=== PATIENT | female | born 1955 | race Caucasian/White ===

== ENCOUNTER 2016-06-12 17:18 | Emergency (ER) | payer BC, OTHER ==
[~2016-06-12] VITALS: Wt 61.4 kg
[~2016-06-12 17:18] MED LIST: IBUP-727 PO; METF500T3 PO; METF500T4 PO; ONDA4TAB8 PO
--- NOTE | 2016-06-12 18:27 | ERD ---
ER Documentation Chief Complaint Date/Time DATE: 06/12/16 TIME: 18:25 Chief Complaint R BO CELLULITIS FROM A WOUND . NO FEVERS. ONSET 1 WEEK AGO HPI This is a 61-year-old female who presents to the emergency room for evaluation of right bo pain and redness. The patient states she fell approximately 5 days ago and states that she noticed some redness in her right bo. The patient states that she went to her primary care physician who sent her to the emergency room for evaluation. The patient also tried putting penicillin cream on her bo without relief. ROS All systems reviewed and are negative except as per history of present illness. Medications Home Meds Active Scripts Metformin* (Glucophage*) 500 Mg Tab, 500 MG PO BID, #60 TAB Prov:HELENA GARCIA MD 08/30/15 Ondansetron Hcl* (Zofran*) 4 Mg Tablet, 4 MG PO Q8H Y for NAUSEA AND/OR VOMITING , #10 TAB Prov:ALONDRA BUCK DO 04/26/15 Reported Medications Metformin* (Glucophage* XR) 500 Mg Tab.sr.24h, 1000 MG PO DAILY, #30 TAB 04/26/15 Ibuprofen (Motrin) 600 Mg Tablet, 600 MG PO Q8 Y for PAIN 12/05/11 Allergies Allergies: Coded Allergies: No Known Allergy (Unverified , 06/07/15) PMhx/Soc History of Surgery: No (partial hysterectomy, bilateral eye surgery for cataracts) Anesthesia Reaction: No Hx Neurological Disorder: No Hx Respiratory Disorders: No Hx Cardiac Disorders: No Hx Psychiatric Problems: No Hx Miscellaneous Medical Probl: Yes (DM) Hx Alcohol Use: Yes (drinks occassionally) Hx Substance Use: No Hx Tobacco Use: No Physical Exam Vitals Vital Signs Date Time Temp Pulse Resp B/P Pulse Ox O2 Delivery O2 Flow Rate FiO2 06/12/16 17:21 98.6 80 21 146/65 99 Physical Exam Const: No acute distress Head: [Atraumatic] Eyes: [Normal Conjunctiva] ENT: [Normal External Ears, Nose and Mouth.] Neck: [Full range of motion. No meningismus.] Resp: [Clear to auscultation bilaterally] Cardio: [Regular rate and rhythm, no murmurs] Abd: [Soft, non tender, non distended. Normal bowel sounds] Skin: 1 cm x 1 cm abrasion with scaling over the right anterior bo with surrounding area of erythema, blanching to the touch, warm to touch, negative Mikulski [No petechiae or rashes] Back: [No midline or flank tenderness] Ext: [No cyanosis, or edema] Neur: [Awake and alert] Psych: [Normal Mood and Affect] Results 24 hrs Current Medications Medications (Trade) Dose Ordered Sig/Sheba Route PRN Reason Start Time Stop Time Status Last Admin Dose Admin Diphtheria/ Tetanus/Acell Pertussis (Adacel) 0.5 ml ONCE ONCE IM* 06/12/16 18:30 2 18:31 Ceftriaxone Sodium (Rocephin) 500 mg ONCE ONCE IM 06/12/16 18:30 2 18:31 Trimethoprim/ Sulfamethoxazole (Bactrim (Ds)) 1 tab ONCE ONCE PO 06/12/16 18:30 2 18:31 Cephalexin (Keflex) 500 mg ONCE ONCE PO 06/12/16 18:30 06/12/16 18:31 Procedures/MDM This 61-year-old female presents to the emergency room for evaluation of right lower extremity cellulitis. This patient does have cellulitis on my examination. The patient was given 500 mg intramuscular Rocephin, 1 tab of Bactrim, 1 tablet Keflex here in the emergency room. She also had tetanus updated. The patient is afebrile, not tachycardic, no signs of systemic infection at this time. She will be discharged home at this time with a prescription for Bactrim and Keflex to take over the course of the next 2 weeks. I advised her to reevaluate her wound 5 days after she starts her antibiotics and if her erythema spreading she is to return immediately to the emergency room for further evaluation. She verbalized understanding. Departure Diagnosis: Primary Impression: Cellulitis of right lower leg Condition: Stable ALONDRA BUCK DO Jun 12, 2016 18:27
[2016-06-12] MEDS ORDERED: TRIMETHOPRIM/SULFAMETHOX (DS) TAB PO ONE (18:30)
[2016-06-12] MEDS ORDERED: DIPHTH/TET/ACEL PERTUSS (ADULT) 0.5 ML VIAL IM* ONE (18:30)
[2016-06-12] MEDS ORDERED: CEFTRIAXONE 500 MG INJ IM ONE (18:30)
[2016-06-12] MEDS ORDERED: CEPHALEXIN 500 MG CAP PO ONE (18:30)
[2016-06-12] MEDS ORDERED: CEPH-443 PO (18:33)
[2016-06-12] MEDS ORDERED: BACTDS PO (18:33)
[2016-06-12] MEDS ORDERED: BACITRACIN 0.9 GM OINT TOP ONE (19:00)
[2016-06-12 19:02] VITALS: BP 136/79; PULSE 79; RESP 18; TEMP 98
== END 2016-06-12 19:10 | disposition home or self-care (01) ==
LOC: FTE 17:18
DX: L03.115 Cellulitis of right lower limb (principal); E11.9 Type 2 diabetes mellitus without complications; Z79.84 Long term (current) use of oral hypoglycemic drugs; Z23 Encounter for immunization
CPT/HCPCS: 90471; 90715; 96372; 99284; J0696; Z7610

== ENCOUNTER 2016-08-07 09:01 | Emergency (ER) | payer BC ==
[~2016-08-07] VITALS: Ht 157.5 cm; Wt 61.0 kg
[~2016-08-07 09:01] MED LIST changes: +BACTDS PO; +CEPH-443 PO
[2016-08-07 09:33] VITALS: Ht 157.5 cm; Wt 61.0 kg
--- NOTE | 2016-08-07 10:09 | ERD ---
ER Documentation Chief Complaint Date/Time DATE: 08/07/16 TIME: 10:07 Chief Complaint LOWER BACK PAIN RADIATING TO LEFT LOWER EXTREMITY HPI 61-year-old female presents with lower back pain that radiates down her left lower extremity for the past 4 days. She states that it is sharp, radiating pain from her left lumbar region, goes to her buttocks, to her medial thigh and her foot. She also states that she has had swelling to her left lower extremity around her foot and ankle. It is worse with ambulation, better with laying flat. She denies any fevers, chills or trauma. She denies saddle anesthesia or loss of bowel bladder function. ROS All systems reviewed and are negative except as per history of present illness. Medications Home Meds Active Scripts Hydrocodone/Acetaminophen ([place] 5-325 Tablet) 1 Each Tablet, 1 TAB PO Q6H Y for PAIN, #20 TAB Prov:DELMY DAVIS PA-C 08/07/16 Sulfamethoxazole-Trimethoprim* (Bactrim* DS) 800-160 Mg Tab, 1 TAB PO BID, #28 TAB Prov:ALONDRA BUCK DO 06/12/16 Cephalexin* (Keflex*) 500 Mg Capsule, 500 MG PO Q6, #56 CAP Prov:ALONDRA BUCK DO 06/12/16 Metformin* (Glucophage*) 500 Mg Tab, 500 MG PO BID, #60 TAB Prov:HELENA GARCIA MD 08/30/15 Ondansetron Hcl* (Zofran*) 4 Mg Tablet, 4 MG PO Q8H Y for NAUSEA AND/OR VOMITING , #10 TAB Prov:ALONDRA BUCK DO 04/26/15 Reported Medications Metformin* (Glucophage* XR) 500 Mg Tab.sr.24h, 1000 MG PO DAILY, #30 TAB 04/26/15 Ibuprofen (Motrin) 600 Mg Tablet, 600 MG PO Q8 Y for PAIN 12/05/11 Allergies Allergies: Coded Allergies: No Known Allergy (Unverified , 06/07/15) PMhx/Soc History of Surgery: No Anesthesia Reaction: No Hx Neurological Disorder: No Hx Respiratory Disorders: No Hx Cardiac Disorders: No Hx Psychiatric Problems: No Hx Miscellaneous Medical Probl: No Hx Alcohol Use: Yes (social) Hx Substance Use: No Hx Tobacco Use: No Physical Exam Vitals Vital Signs Date Time Temp Pulse Resp B/P Pulse Ox O2 Delivery O2 Flow Rate FiO2 08/07/16 09:33 98.0 78 18 167/73 98 Physical Exam General: Well-developed, well-nourished. The patient appears in no acute distress. HEENT: Head is normocephalic, atraumatic. No scleral icterus. Neck: Supple. Nontender. Lungs: Clear to auscultation. Normal air movement. Heart: Regular rate and rhythm. S1 and S2 are normal. No murmurs, gallops, or rubs. Abdomen: Soft, nontender, nondistended. Bowel sounds are normoactive. Musculoskeletal: Patient has reproducible tenderness in lumbosacral region on the left side, straight leg raise exacerbates the patient's lumbar pain. Gait is intact. Strength lower extremities 5 out of 5 bilaterally. There is swelling to her left foot and ankle.. Neurologic: Alert and oriented 3. No focal deficits. Skin: Normal turgor. No rash or lesions. Results 24 hrs PROCEDURE: US left lower extremity veins. CLINICAL INDICATION: Left leg pain and swelling. TECHNIQUE: Multiple longitudinal and transverse images of the left lower extremity veins were obtained with delgado scale and color Doppler imaging. The common femoral vein, femoral vein, and popliteal vein were evaluated. 2D grayscale measurements with compression sonography, pulsed Doppler, color Doppler, and pulsed Doppler with augmentation. COMPARISON: No prior studies are available for comparison. FINDINGS: The left common femoral, femoral and popliteal veins are normally compressible throughout. Color flow demonstrates normal filling of the vessels. Normal waveforms are visualized and there is normal response to augmentation. IMPRESSION: 1. No evidence of deep vein thrombosis involving the left lower extremity. RPTAT: QQ .Dimitri Vera MD, MD Date Time Electronically viewed and signed by .Dimitri Vera MD, on 08/07/2016 10:59 .R/ Current Medications Medications (Trade) Dose Ordered Sig/Sheba Route PRN Reason Start Time Stop Time Status Last Admin Dose Admin Morphine Sulfate (morphine) 2 mg ONCE ONCE IM 08/07/16 10:30 4/18/17 10:31 DC 08/07/16 10:14 Procedures/MDM ER course: Patient was given morphine 2 mg IM. MDM: 61-year-old female presents with low back pain radiating to her left lower leg. Differential diagnosis for low back pain includes sciatica, fracture, subluxation, cauda equina, epidural abscess, epidural hematoma. Patient's pain does radiate, she does have paresthesias associated with this, and given that she has already been taking Naprosyn and ibuprofen she was medicated with morphine in the emergency department and has significant relief in her pain. She will be given a short course of [place], and will be asked to follow-up with her primary care physician. DVT was ruled out with a Doppler study today. There are no limb threatening processes, patient's back pain is likely due to radicular symptoms, her symptoms have been controlled in the emergency department and she will be discharged in stable condition. Patient's blood pressure was elevated (>120/80) but appears stable without evidence of hypertension emergency or urgency. The patient was counseled about the risks of hypertension and urged to pursue outpatient monitoring and therapy within a week with their primary care physician. Departure Diagnosis: Primary Impression: Low back pain Condition: DELMY Quintana PA-C Aug 07, 2016 10:09
[2016-08-07] MEDS ORDERED: morphine 10 MG INJ IM ONE (10:30)
--- NOTE | 2016-08-07 11:00 | RADRPT ---
PROCEDURE: US left lower extremity veins. CLINICAL INDICATION: Left leg pain and swelling. TECHNIQUE: Multiple longitudinal and transverse images of the left lower extremity veins were obta ined with delgado scale and color Doppler imaging. The common femoral vein, femoral vein, and popliteal vein were evaluated. 2D grayscale measurements with compression sonography, pulsed Doppler, color D oppler, and pulsed Doppler with augmentation. COMPARISON: No prior studies are available for comparison. FINDINGS: The left common femoral, femoral and popliteal veins are normally compressible throughout. Color fl ow demonstrates normal filling of the vessels. Normal waveforms are visualized and there is normal response to augmentation. IMPRESSION: 1. No evidence of deep vein thrombosis involving the left lower extremity. RPTAT: QQ .Dimitri Vera MD, MD Date Time Electronically viewed and signed by .Dimitri Vera MD, on 08/07/2016 10:59 .R/
[2016-08-07] MEDS ORDERED: HYDR-906 PO (11:07)
== END 2016-08-07 11:16 | disposition home or self-care (01) ==
LOC: FTE 09:01
DX: M54.5 Low back pain (principal); E11.9 Type 2 diabetes mellitus without complications; Z79.84 Long term (current) use of oral hypoglycemic drugs
CPT/HCPCS: 93971; J2270; 96372

== ENCOUNTER 2017-03-08 13:24 | Emergency (ER) | payer BC ==
[~2017-03-08] VITALS: Ht 154.9 cm; Wt 62.2 kg
[~2017-03-08 13:24] MED LIST changes: +HYDR-906 PO
[2017-03-08 13:28] VITALS: Ht 154.9 cm; Wt 62.2 kg
[2017-03-08] MEDS ORDERED: SOD CHLORIDE 0.9% 1,000 ML IV STA (14:20)
[2017-03-08] MEDS ORDERED: ONDANSETRON 4 MG INJ IV STA (14:20)
[2017-03-08] MEDS ORDERED: INSULIN LISPRO 100 UNIT/ML VIAL SC STA (14:20)
[2017-03-08 14:53] LABS: BASOPHILS % 0.3 % (0.0-2.0); EOSINOPHILS # 0.1 10^3/ul (0.0-0.5); EOSINOPHILS % 1.7 % (0.0-7.0); HEMATOCRIT 28.6 % (37.0-47.0); HEMOGLOBIN 9.6 g/dl (12.0-16.0); LYMPHOCYTES # 1.5 10^3/ul (0.8-2.9); MEAN CORPUSCULAR HGB CONC 33.6 g/dl (32.0-37.0); MEAN CORPUSCULAR VOLUME 89.4 fl (82.0-101.0); MEAN PLATELET VOLUME 9.3 fl (7.4-10.4); MONOCYTE # 0.3 10^3/ul (0.3-0.9); MONOCYTES % 3.9 % (0.0-11.0); NEUTROPHIL # 5.7 10^3/ul (1.6-7.5); NEUTROPHILS % 74.8 % (39.0-77.0); PLATELET COUNT 294 10^3/UL (140-415); RED CELL DISTRIBUTION WIDTH 13.1 % (11.5-14.5); WHITE BLOOD COUNT 7.7 10^3/ul (4.8-10.8)
--- NOTE | 2017-03-08 14:57 | RADRPT ---
PROCEDURE: XR Chest. CLINICAL INDICATION: Abdominal pain TECHNIQUE: Single frontal view of the chest was obtained COMPARISON: None FINDINGS: The heart and mediastinum are within normal limits. There is mild elevation of the right diaphragm with right lower lobe linear atelectasis. There is no pleural effusion or pneumothorax. RPTAT: AA IMPRESSION: Mild elevation of the right diaphragm with right lower lobe linear atelectasis. .Abdelrahman Crandall MD, MD Date Time Electronically viewed and signed by .Abdelrahman Crandall MD, MD on 03/08/2017 14:57 .S/
[2017-03-08 15:02] LABS: ADD UMIC YES; UR ASCORBIC ACID NEGATIVE (NEGATIVE); UR BACTERIA FEW /HPF (NONE SEEN); UR BILIRUBIN (Dip) NEGATIVE (NEGATIVE); UR BLOOD (Dip) NEGATIVE (NEGATIVE); UR CLARITY SLIGHTLY CLOUDY (CLEAR); UR COLOR YELLOW (YELLOW); UR GLUCOSE (Dip) 3+ mg/dL (NEGATIVE); UR KETONES (Dip) TRACE mg/dL (NEGATIVE); UR LEUKOCYTE ESTERASE (Dip) NEGATIVE Leu/ul (NEGATIVE); UR MUCUS FEW /HPF (NONE SEEN); UR NITRITE (Dip) NEGATIVE (NEGATIVE); UR RBC 3 /HPF (0-5); UR SPECIFIC GRAVITY (Dip) 1.027 (1.003-1.030); UR SQUAMOUS EPITHELIAL CELL FEW /HPF (FEW); UR TOTAL PROTEIN (Dip) 3+ mg/dl (NEGATIVE); UR UROBILINOGEN (Dip) NEGATIVE (NEGATIVE)
[2017-03-08 15:21] LABS: ALBUMIN 2.8 g/dl (3.3-4.9); ALBUMIN/GLOBULIN RATIO 0.77; BILIRUBIN,INDIRECT 0.3 mg/dl (0-1.1); BILIRUBIN,TOTAL 0.3 mg/dl (0.2-1.3); CALCIUM 8.7 mg/dl (8.4-10.2); CREATININE 1.54 mg/dl (0.44-1.00); POTASSIUM 4.2 mmol/L (3.5-5.1); TOTAL PROTEIN 6.4 g/dl (6.1-8.1)
[2017-03-08 15:32] LABS: TROPONIN-I 0.019 ng/ml (0.00-0.12)
--- NOTE | 2017-03-08 16:31 | ERD ---
ER Documentation Chief Complaint Chief Complaint MD referral: BS 489, HTN, UTI HPI 62-year-old woman referred here by PMD for hyperglycemia. She was they are being evaluated for recent urinary hesitancy and dysuria and was diagnosed with urinary tract infection, she filled her ciprofloxacin prescription and took 1 dose today and has no other complaints. She states she has been using her diabetic medications as prescribed. She denies abdominal pain, no vomiting or diarrhea, no hematuria, no fevers or chills, no back pain, no chest pain or shortness of breath. ROS All systems reviewed and are negative except as per history of present illness. Medications Home Meds Active Scripts Hydrocodone/Acetaminophen ([place] 5-325 Tablet) 1 Each Tablet, 1 TAB PO Q6H Y for PAIN, #20 TAB Prov:DELMY DAVIS PA-C 08/07/16 Sulfamethoxazole-Trimethoprim* (Bactrim* DS) 800-160 Mg Tab, 1 TAB PO BID, #28 TAB Prov:ALONDRA BUCK DO 06/12/16 Cephalexin* (Keflex*) 500 Mg Capsule, 500 MG PO Q6, #56 CAP Prov:ALONDRA BUCK DO 06/12/16 Metformin* (Glucophage*) 500 Mg Tab, 500 MG PO BID, #60 TAB Prov:HELENA GARCIA MD 08/30/15 Ondansetron Hcl* (Zofran*) 4 Mg Tablet, 4 MG PO Q8H Y for NAUSEA AND/OR VOMITING , #10 TAB Prov:ALONDRA BUCK DO 04/26/15 Reported Medications Metformin* (Glucophage* XR) 500 Mg Tab.sr.24h, 1000 MG PO DAILY, #30 TAB 04/26/15 Ibuprofen (Motrin) 600 Mg Tablet, 600 MG PO Q8 Y for PAIN 12/05/11 Allergies Allergies: Coded Allergies: No Known Allergy (Unverified , 06/07/15) PMhx/Soc Diabetes mellitus Medical and Surgical Hx: pt denies Medical Hx History of Surgery: No Anesthesia Reaction: No Hx Neurological Disorder: No Hx Respiratory Disorders: No Hx Cardiac Disorders: No Hx Psychiatric Problems: No Hx Miscellaneous Medical Probl: No Hx Alcohol Use: Yes (social) Hx Substance Use: No Hx Tobacco Use: No Smoking Status: Never smoker FmHx Family History: No diabetes Physical Exam Vitals Vital Signs Date Time Temp Pulse Resp B/P Pulse Ox O2 Delivery O2 Flow Rate FiO2 03/08/17 13:28 98.6 91 16 204/85 100 Physical Exam GENERAL: Well-developed, well-nourished, well-hydrated, in no apparent distress , looks nontoxic in appearance HEENT: Moist mucous membranes, pink conjunctiva, no cervical spine tenderness or step-off deformities, no goiter, no jaundice or icterus, extraocular movements intact without pain. No submandibular induration, and no pharyngeal erythema NEURO: Alert and oriented 3, cranial nerves II through XII intact bilaterally, pupils equal round reactive to light, no focal deficits or facial asymmetry, sensation intact distally Strength 5/5 in upper and lower extremities bilaterally CARDIAC: Regular rate and rhythm, no murmurs rubs or gallops LUNGS: Clear bilaterally no wheezing crackles or stridor ABDOMEN: Soft nontender, no guarding, no rigidity, no rebound, no psoas sign no obturator sign. Normoactive bowel sounds SKIN: Warm and dry to touch, no abrasions, contusions, or hematomas, no lacerations, no ecchymosis, no target lesions, and without ulcers EXTREMITIES: No clubbing cyanosis or edema, calves are bilaterally symmetrical, no Homans sign, no popliteal cord sign. Distal pulses equal and bilateral PSYCH: Normal affect without agitation or irritability Result Diagram: 03/08/17 1436 03/08/17 1436 Results 24 hrs Laboratory Tests Test 03/08/17 14:36 03/08/17 14:43 03/08/17 16:33 White Blood Count 7.710^3/ul Red Blood Count 3.2010^6/ul Hemoglobin 9.6g/dl Hematocrit 28.6% Mean Corpuscular Volume 89.4fl Mean Corpuscular Hemoglobin 30.0pg Mean Corpuscular Hemoglobin Concent 33.6g/dl Red Cell Distribution Width 13.1% Platelet Count 76466^3/UL Mean Platelet Volume 9.3fl Neutrophils % 74.8% Lymphocytes % 19.0% Monocytes % 3.9% Eosinophils % 1.7% Basophils % 0.3% Nucleated Red Blood Cells % 0.0/100WBC Neutrophils # 5.710^3/ul Lymphocytes # 1.510^3/ul Monocytes # 0.310^3/ul Eosinophils # 0.110^3/ul Basophils # 0.010^3/ul Nucleated Red Blood Cells # 0.010^3/ul Urine Color YELLOW Urine Clarity SLIGHTLY CLOUDY Urine pH 7.0 Urine Specific [place] 1.027 Urine Ketones TRACEmg/dL Urine Nitrite NEGATIVEmg/dL Urine Bilirubin NEGATIVEmg/dL Urine Urobilinogen NEGATIVEmg/dL Urine Leukocyte Esterase NEGATIVELeu/ul Urine Microscopic RBC 3/HPF Urine Microscopic WBC 8/HPF Urine Squamous Epithelial Cells FEW/HPF Urine Bacteria FEW/HPF Urine Mucus FEW/HPF Urine Hemoglobin NEGATIVEmg/dL Urine Glucose 3+mg/dL Urine Total Protein 3+mg/dl Sodium Level 134mmol/L Potassium Level 4.2mmol/L Chloride Level 104mmol/L Carbon Dioxide Level 26mmol/L Anion Gap 8 Blood Urea Nitrogen 25mg/dl Creatinine 1.54mg/dl Glucose Level 388mg/dl Calcium Level 8.7mg/dl Total Bilirubin 0.3mg/dl Direct Bilirubin 0.00mg/dl Indirect Bilirubin 0.3mg/dl Aspartate Amino Transf (AST/SGOT) 25IU/L Alanine Aminotransferase (ALT/SGPT) 22IU/L Alkaline Phosphatase 125IU/L Troponin I 0.019ng/ml Total Protein 6.4g/dl Albumin 2.8g/dl Globulin 3.60g/dl Albumin/Globulin Ratio 0.77 Lipase 99U/L Bedside Glucose 412mg/dL 140mg/dL Current Medications Medications (Trade) Dose Ordered Sig/Sheba Route PRN Reason Start Time Stop Time Status Last Admin Dose Admin Sodium Chloride (NS) 1,000 ml @ 1,000 mls/hr Q1H STAT IV 03/08/17 14:20 03/08/17 15:19 DC 03/08/17 14:48 Ondansetron HCl (Zofran Inj) 4 mg ONCE STAT IV 03/08/17 14:20 03/08/17 14:24 DC 03/08/17 14:48 Insulin Human Lispro (Humalog) 12 unit ONCE STAT SC 03/08/17 14:20 03/08/17 14:25 DC 03/08/17 14:52 Procedures/MDM IV line was established patient was placed on court monitor rhythm strip revealed a sinus rhythm at about 80 bpm with upright P and T waves. Patient was afebrile, initial blood sugar over 400 EKG performed, read by me: 87 bpm, normal sinus rhythm, normal axis, no acute ST segment changes, narrow QRS complex, with good R-wave progression in precordial leads. One AP view of the chest performed, read by me reveals no acute infiltrates, normal mediastinum, sharp costophrenic and cardiac borders, no air under the diaphragm. Otherwise unremarkable chest x-ray. I administered 1 L normal saline intravenously, Zofran 4 mg IV for nausea although she had no episodes of vomiting while here, and lispro insulin 12 units subcutaneous injection 1. CBC and electrolytes are normal, liver function tests were normal, troponin was negative, urine analysis concerning for early urinary tract infection. Repeat blood sugar was normal at 140. Differential diagnoses considered, included but not limited to acute coronary syndrome, pulmonary embolism, aortic dissection, abdominal aortic aneurysm, sepsis, stroke, meningitis, encephalitis, pneumonia, appendicitis, cholecystitis , bowel obstruction, pyelonephritis, nephrolithiasis, cystitis, as well as metabolic, hematologic, and electrolyte abnormalities. As well as abscess, cellulitis, fractures, and dislocations. Patient feels much better at this time, and vital signs are normal, symptoms have improved. I did give strict instructions to return to the ED if symptoms continue or worsen, patient will otherwise follow-up with primary care physician. Patient understood instructions and agreed to plan. Disclaimer: Inadvertent spelling and grammatical errors are likely due to EHR/ dictation software use and do not reflect on the overall quality of patient care. Also, please note that the electronic time recorded on this note does not necessarily reflect the actual time of the patient encounter. Departure Diagnosis: Primary Impression: UTI (urinary tract infection) Urinary tract infection type: acute cystitis Hematuria presence: without hematuria Qualified Code: N30.00 - Acute cystitis without hematuria Additional Impression: Acute hyperglycemia Condition: TOLU Ball MD Mar 08, 2017 16:31
== END 2017-03-08 17:18 | disposition home or self-care (01) ==
LOC: E/R 13:24
DX: N30.00 Acute cystitis without hematuria (principal); I10 Essential (primary) hypertension; Z79.84 Long term (current) use of oral hypoglycemic drugs
CPT/HCPCS: 36415; 71010; 80053; 81001; 82962; 83690; 84484; 85025; 87086; 96372; 96374; 99285; J1815; J2405; J7030

== ENCOUNTER 2017-03-13 18:32 | Emergency (ER) | payer BC ==
[~2017-03-13] VITALS: Ht 157.5 cm; Wt 68.2 kg
[2017-03-13 18:37] VITALS: Ht 157.5 cm; Wt 68.2 kg
[2017-03-13] MEDS ORDERED: SOD CHLORIDE 0.9% 1,000 ML IV STA (19:10)
[2017-03-13 19:24] LABS: BASOPHILS % 0.5 % (0.0-2.0); EOSINOPHILS # 0.1 10^3/ul (0.0-0.5); EOSINOPHILS % 1.3 % (0.0-7.0); HEMATOCRIT 27.2 % (37.0-47.0); HEMOGLOBIN 8.9 g/dl (12.0-16.0); LYMPHOCYTES # 1.5 10^3/ul (0.8-2.9); LYMPHOCYTES % 24.4 % (15.0-51.0); MEAN CORPUSCULAR HEMOGLOBIN 30.1 pg (29.0-33.0); MEAN CORPUSCULAR HGB CONC 32.7 g/dl (32.0-37.0); MEAN CORPUSCULAR VOLUME 91.9 fl (82.0-101.0); MEAN PLATELET VOLUME 9.4 fl (7.4-10.4); MONOCYTE # 0.3 10^3/ul (0.3-0.9); MONOCYTES % 4.5 % (0.0-11.0); NEUTROPHIL # 4.1 10^3/ul (1.6-7.5); NEUTROPHILS % 68.8 % (39.0-77.0); PLATELET COUNT 313 10^3/UL (140-415); RED BLOOD COUNT 2.96 10^6/ul (4.20-5.40); RED CELL DISTRIBUTION WIDTH 13.2 % (11.5-14.5)
[2017-03-13 19:41] LABS: ALBUMIN 2.7 g/dl (3.3-4.9); ALBUMIN/GLOBULIN RATIO 0.81; BILIRUBIN,INDIRECT 0.1 mg/dl (0-1.1); BILIRUBIN,TOTAL 0.1 mg/dl (0.2-1.3); CALCIUM 8.2 mg/dl (8.4-10.2); CREATININE 1.68 mg/dl (0.44-1.00); POTASSIUM 4.2 mmol/L (3.5-5.1)
[2017-03-13] MEDS ORDERED: INSULIN REGULAR, HUMAN 100 UNIT/1 ML 3ML VIAL SC ONE (20:00)
--- NOTE | 2017-03-13 20:53 | ERD ---
ER Documentation Chief Complaint Chief Complaint high blood sugar at home 465, also c/o nausea, headache HPI This is a 62-year-old female has a history of diabetes and says she takes metformin she also takes blood pressure medications but she is not sure what they are. She said her blood sugars been running high the past 2 days greater than 400. She says she has a very mild dull headache with some nausea but no vomiting no focal neurological complaints of visual changes or numbness or weakness. She states she was here for the same complaints last week. She says that she has no diarrhea or abdominal pain. She says she is frustrated because medication she is taking not controlling her blood pressure or her sugar. ROS All systems reviewed and are negative except as per history of present illness. Medications Home Meds Active Scripts Ondansetron (Ondansetron Odt) 4 Mg Tab.rapdis, 4 MG PO Q6H Y for NAUSEA AND/OR VOMITING, #10 TAB Prov:NAZIA RAMOS DO 03/13/17 Hydrocodone/Acetaminophen ([place] 5-325 Tablet) 1 Each Tablet, 1 TAB PO Q6H Y for PAIN, #20 TAB Prov:DELMY DAVIS PA-C 08/07/16 Sulfamethoxazole-Trimethoprim* (Bactrim* DS) 800-160 Mg Tab, 1 TAB PO BID, #28 TAB Prov:ALONDRA BUCK DO 06/12/16 Cephalexin* (Keflex*) 500 Mg Capsule, 500 MG PO Q6, #56 CAP Prov:ALONDRA BUCK DO 06/12/16 Metformin* (Glucophage*) 500 Mg Tab, 500 MG PO BID, #60 TAB Prov:HELENA GARCIA MD 08/30/15 Ondansetron Hcl* (Zofran*) 4 Mg Tablet, 4 MG PO Q8H Y for NAUSEA AND/OR VOMITING , #10 TAB Prov:ALONDRA BUCK DO 04/26/15 Reported Medications Metformin* (Glucophage* XR) 500 Mg Tab.sr.24h, 1000 MG PO DAILY, #30 TAB 04/26/15 Ibuprofen (Motrin) 600 Mg Tablet, 600 MG PO Q8 Y for PAIN 12/05/11 Allergies Allergies: Coded Allergies: No Known Allergy (Unverified , 06/07/15) PMhx/Soc History of Surgery: No Anesthesia Reaction: No Hx Neurological Disorder: No Hx Respiratory Disorders: No Hx Cardiac Disorders: Yes (HTN; HLD) Hx Psychiatric Problems: No Hx Miscellaneous Medical Probl: Yes (DM) Hx Alcohol Use: Yes (social) Hx Substance Use: No Hx Tobacco Use: No Smoking Status: Never smoker FmHx Family History: No coronary disease Physical Exam Vitals Vital Signs Date Time Temp Pulse Resp B/P Pulse Ox O2 Delivery O2 Flow Rate FiO2 03/13/17 21:33 75 18 182/73 100 Room Air 03/13/17 20:05 83 17 202/80 100 Room Air 03/13/17 18:37 98.0 73 20 206/82 99 Physical Exam Const: Well-developed, well-nourished Head: Atraumatic, normocephalic Eyes: Normal Conjunctiva, PERRLA, EOMI, normal sclera, no nystagmus ENT: Normal External Ears, Nose and Mouth, moist mucus membranes. Neck: Full range of motion. No meningismus, no lymphadenopathy. Resp: Clear to auscultation bilaterally, no wheezing, rhonchi, rales Cardio: Regular rate and rhythm, no murmurs, S1 S2 present Abd: Soft, non tender x 4, non distended. Normal bowel sounds, no guarding or rebound, no pulsitile abdominal masses or bruits Skin: No petechiae or rashes, no ecchymosis , no maculopapular rash Back: No midline or flank tenderness Ext: No cyanosis, or edema, FROM x 4, normal inspection, neurovascularly intact x 4 Neur: Awake and alert, STR 5/5 x 4, sensation intact x 4, no focal findings, cerebellum intact Psych: Normal Mood and Affect Result Diagram: 03/13/17191503/13/171915 Results 24 hrs Laboratory Tests Test 03/13/17 18:51 03/13/17 19:16 03/13/17 19:55 03/13/17 21:32 Bedside Glucose 389mg/dL 328mg/dL 283mg/dL White Blood Count 6.010^3/ul Red Blood Count 2.9610^6/ul Hemoglobin 8.9g/dl Hematocrit 27.2% Mean Corpuscular Volume 91.9fl Mean Corpuscular Hemoglobin 30.1pg Mean Corpuscular Hemoglobin Concent 32.7g/dl Red Cell Distribution Width 13.2% Platelet Count 10865^3/UL Mean Platelet Volume 9.4fl Neutrophils % 68.8% Lymphocytes % 24.4% Monocytes % 4.5% Eosinophils % 1.3% Basophils % 0.5% Nucleated Red Blood Cells % 0.0/100WBC Neutrophils # 4.110^3/ul Lymphocytes # 1.510^3/ul Monocytes # 0.310^3/ul Eosinophils # 0.110^3/ul Basophils # 0.010^3/ul Nucleated Red Blood Cells # 0.010^3/ul Sodium Level 134mmol/L Potassium Level 4.2mmol/L Chloride Level 103mmol/L Carbon Dioxide Level 27mmol/L Anion Gap 8 Blood Urea Nitrogen 25mg/dl Creatinine 1.68mg/dl Glucose Level 401mg/dl Calcium Level 8.2mg/dl Total Bilirubin 0.1mg/dl Direct Bilirubin 0.00mg/dl Indirect Bilirubin 0.1mg/dl Aspartate Amino Transf (AST/SGOT) 25IU/L Alanine Aminotransferase (ALT/SGPT) 26IU/L Alkaline Phosphatase 172IU/L Total Protein 6.0g/dl Albumin 2.7g/dl Globulin 3.30g/dl Albumin/Globulin Ratio 0.81 Current Medications Medications (Trade) Dose Ordered Sig/Sheba Route PRN Reason Start Time Stop Time Status Last Admin Dose Admin Sodium Chloride (NS) 1,000 ml @ 1,000 mls/hr Q1H STAT IV 03/13/17 19:10 03/13/17 20:09 DC 03/13/17 19:16 Insulin Human Regular (Humulin R) 8 unit ONCE ONCE SC 03/13/17 20:00 03/13/17 20:01 DC 03/13/17 20:03 Nicardipine HCl (Cardene) 30 mg ONCE ONCE PO 03/13/17 21:00 03/13/17 21:01 DC 03/13/17 21:03 Procedures/MDM Patient's blood sugars been lower giving her insulin and fluids. She is given Cardene for blood pressure. The patient does not know her medication list other than metformin and losartan she says she takes 3 blood pressure medicines and 3 diabetes medicines. The patient has a appointment with her primary care physician on Saturday morning. Patient apparently eats whatever she wants does not follow a diabetic diet. Discussed with this with her she must follow the correct low sugar low- carb diet. I advised her to discuss this with her primary care on Saturday to get her on the right medicines for both medical problems Departure Diagnosis: Primary Impression: Acute hyperglycemia Additional Impression: Hypertension Hypertension type: essential hypertension Qualified Code: I10 - Essential hypertension Condition: Stable NAZIA RAMOS DO Mar 13, 2017 20:53
[2017-03-13] MEDS ORDERED: NICARDipine HCL 30 MG CAPSULE PO ONE (21:00)
[2017-03-13] MEDS ORDERED: ONDA4TAB14 PO (22:02)
[2017-03-13 22:21] VITALS: BP 138/61; PULSE 80; RESP 17; TEMP 98.6
== END 2017-03-13 22:23 | disposition home or self-care (01) ==
LOC: E/R 18:32
DX: E11.65 Type 2 diabetes mellitus with hyperglycemia (principal); I10 Essential (primary) hypertension; Z79.84 Long term (current) use of oral hypoglycemic drugs
CPT/HCPCS: 36415; 80053; 82962; 85025; 96372; J1815; J7030; Z7502; Z7610

== ENCOUNTER 2017-04-09 06:08 | Day surgery (SDC) | payer BC ==
[~2017-04-09] VITALS: Ht 160 cm; Wt 64.3 kg
[~2017-04-09 06:08] MED LIST changes: +ONDA4TAB14 PO
[2017-04-09] MEDS ORDERED: GABA300C16 PO (07:01)
[2017-04-09] MEDS ORDERED: OLMESARTAN (07:01)
[2017-04-09] MEDS ORDERED: LEVO50TA74 PO (07:01)
[2017-04-09] MEDS ORDERED: DSS PO (07:01)
[2017-04-09] MEDS ORDERED: METOPROLOL (07:01)
[2017-04-09] MEDS ORDERED: FOLIC ACID PO (07:01)
[2017-04-09] MEDS ORDERED: GLIM4TAB PO (07:01)
[2017-04-09] MEDS ORDERED: ATOR40TA68 PO (07:01)
[2017-04-09] MEDS ORDERED: SITA100T8 PO (07:01)
[2017-04-09] MEDS ORDERED: HYDR25TA6 PO (07:01)
[2017-04-09] MEDS ORDERED: ESOM20CA PO (07:01)
[2017-04-09] MEDS ORDERED: FURO40TA4 PO (07:01)
[2017-04-09 07:33] VITALS: Ht 160 cm; Wt 64.3 kg
--- NOTE | 2017-04-09 07:44 | OPPN ---
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
[2017-04-09 08:20] VITALS: BP 169/74; PULSE 76; RESP 16
[2017-04-09] MEDS ORDERED: MIDAZOLAM 1 MG/ML 2 ML INJ ONE (09:17)
[2017-04-09] MEDS ORDERED: FENTAnyl 50 MCG/ML VIAL ONE (09:17)
--- NOTE | 2017-04-09 10:52 | GILP ---
DATE OF PROCEDURE: NAME OF PROCEDURES: Esophagogastroduodenoscopy and biopsy. SURGEON: Sandrine Valencia MD PREOPERATIVE DIAGNOSIS: Nausea, vomiting and weight loss. POSTOPERATIVE DIAGNOSES: 1. Possible gastroparesis with residual food in the stomach, making the exam incomplete and inadequ ate. 2. Gastric mucosal biopsies were taken for Helicobacter pylori test. INDICATION FOR THE PROCEDURE: Ms. Erika Westfall is a 62-year-old female patient who had abdominal d iscomfort associated with nausea and vomiting. She had weight loss. The patient was scheduled for endoscopic examination for further evaluation. The procedure and possible complications were well explained to the patient. She understood and con sented to the procedure. DESCRIPTION OF PROCEDURE: Under the influence of fentanyl and Versed, the gastroscope was carefully introduced into the esophagus and it was advanced to the stomach. FINDINGS: ESOPHAGUS: The mucosa was normal. STOMACH: The patient had possible gastroparesis with residual food in the stomach, making the exam inadequate and incomplete. Gastric mucosal biopsy was taken for H. pylori test. The scope was not advanced into the duodenum because of residual food in the stomach. She tolerated the procedure very well and there was no complication from the procedure. At the end of the procedures, she was awake with stable vital signs and she was discharged home to the care of her family. IMPRESSION: Please see postoperative diagnoses. PLAN 1. Continue Nexium. 2. Nuclear medicine solid gastric emptying study to rule out gastroparesis. 3. The patient will need repeat endoscopy after prolonged fasting. Dictated By: SANDRINE NAVARRETE/TIM Conf#: [id number] DID#: [id number]
== END 2017-04-09 11:04 | disposition home or self-care (01) ==
LOC: GIL 06:08
PROVIDERS: ATTEND Internal Medicine Gastroenterology
DX: R11.2 Nausea with vomiting, unspecified (principal); R63.4 Abnormal weight loss; I12.9 Hypertensive chronic kidney disease with stage 1 through stage 4 chronic kidney disease, or unspecified chronic kidney disease; N18.9 Chronic kidney disease, unspecified
CPT/HCPCS: 82962; 87081; J2250; J3010

== ENCOUNTER 2017-06-07 17:13 | Inpatient (IN) | END 2017-06-19 15:38 | disposition home or self-care (01) | DRG 683 ==

== ENCOUNTER 2017-08-05 19:49 | Inpatient (IN) | END 2017-08-12 18:45 | disposition home or self-care (01) | DRG 683 ==

== ENCOUNTER 2018-03-03 07:19 | Day surgery (SDC) | END 2018-03-03 13:00 | disposition home or self-care (01) ==

== ENCOUNTER 2018-05-01 14:37 | Emergency (ER) | payer BC ==
[~2018-05-01] VITALS: Ht 167.6 cm; Wt 67.6 kg
[~2018-05-01 14:37] MED LIST changes: +ATOR-2 PO; -BACTDS PO; +BUME2TAB2 PO; -CEPH-443 PO; +CHOL500010 PO; +DOCU250C58 PO; +FER325 PO; +FOLI-49 PO; +GABA300C16 PO; -HYDR-906 PO; -IBUP-727 PO; +INSU100I12 SQ; +INSU100I33 SC; +LEVO50TA7 PO; -METF500T3 PO; -METF500T4 PO; +METO-336 PO; +NIFE30TA23 PO; -ONDA4TAB14 PO; -ONDA4TAB8 PO
[2018-05-01 14:53] VITALS: Ht 167.6 cm; Wt 67.6 kg
--- NOTE | 2018-05-01 17:44 | ERD ---
ER Documentation Chief Complaint Chief Complaint cough, congestion, sore throat x 3 days HPI 63-year-old female presents with congestion, cough, achiness, chills, for the past 3 days. Patient states she has been having a fever as well for which she has been taking Tylenol. States that other people in her household are sick with flu. Denies night sweats, weight loss, hemoptysis, SOB, chest pain, wheezing. Past medical history of diabetes, hypertension. Denies allergies. Denies medications. Denies surgeries. Denies alcohol, tobacco, drug use. Up to date on vaccines. ROS All systems reviewed and are negative except as per history of present illness. Medications Home Meds Active Scripts Oseltamivir Phosphate* (Tamiflu*) 75 Mg Capsule, 75 MG PO BID for influenza for 5 Days, #10 CAP Prov:TREVOR ORLANDO 05/01/18 Acetaminophen* (Tylophen*) 500 Mg Capsule, 1 CAP PO Q6H PRN for PAIN AND OR ELEVATED TEMP, #30 CAP Prov:TREVOR ORLANDO 05/01/18 Benzonatate* (Benzonatate*) 100 Mg Capsule, 100 MG PO TID PRN for COUGH, #20 CAP 0 Refills Prov:TREVOR ORLANDO 05/01/18 Insulin Lispro (Humalog Kwikpen U-100) 100 Unit/1 Ml Insuln.pen, 5 UNIT SQ AC MEALS, #1 SYR 5 units subcutaneous 3 times a day with meals. Provide patient with #100 TEST STRIPS #100 LANCETS #100 4mm 32 Gauge pen needles If pen is not covered, can be replaced with vital. Prov:MIAN FRAIRE NP 08/12/17 Reported Medications Bumetanide* (Bumetanide*) 2 Mg Tablet, 2 MG PO BID, TAB 03/03/18 Nifedipine* (Nifedipine ER*) 30 Mg Tablet.sa, 30 MG PO DAILY, TAB.SA 03/03/18 Atorvastatin* (Atorvastatin*) 80 Mg Tablet, 80 MG PO QHS, #30 TAB 03/03/18 Metoprolol Succinate* (Toprol XL*) 100 Mg Tab.sr.24h, 100 MG PO DAILY, #30 TAB 03/03/18 Insulin Glargine,Hum.rec.anlog (Basaglar Kwikpen U-100) 100 Unit/1 Ml Insuln.pen, 35 UNIT SC QHS, EA 03/03/18 Cholecalciferol (Vitamin D3) 5,000 Unit Tablet, 5000 UNIT PO DAILY, TAB 03/03/18 Docusate Sodium* (Colace*) 250 Mg Capsule, 250 MG PO DAILY, #30 CAP 06/07/17 Ferrous Sulfate* (Ferrous Sulfate*) 325 Mg Tabec, 325 MG PO DAILY, TAB 06/07/17 Folic Acid* (Folic Acid*) 1 Mg Tablet, 1 MG PO DAILY, TAB 06/07/17 Gabapentin* (Gabapentin*) 300 Mg Capsule, 300 MG PO BID, #60 CAP 04/09/17 Levothyroxine Sodium* (Levothyroxine Sodium*) 50 Mcg Tablet, 50 MCG PO BEFORE BREAKFAST, #30 TAB 04/09/17 Allergies Allergies: Coded Allergies: No Known Allergy (Unverified , 03/03/18) PMhx/Soc History of Surgery: Yes (hysterectomy, EGD) Anesthesia Reaction: No Hx Neurological Disorder: No Hx Respiratory Disorders: No Hx Cardiac Disorders: Yes (htn, ) Hx Psychiatric Problems: No Hx Miscellaneous Medical Probl: Yes (anemia) Hx Alcohol Use: No Hx Substance Use: No Hx Tobacco Use: No Smoking Status: Never smoker FmHx Family History: No diabetes, No coronary disease, No other Physical Exam Vitals Vital Signs Date Temp Pulse Resp B/P (MAP) Pulse Ox O2 O2 Flow FiO2 Time Delivery Rate 05/01/18 98.5 80 18 187/86 96 Room Air 19:06 (119) 05/01/18 97.6 101 20 182/76 99 14:53 (111) Physical Exam General: Well developed, well nourished. No acute distress. Head: Atraumatic. No sinus tenderness to palpation. Throat: No tonsillar erythema, edema, or exudates noted bilaterally. No masses, lesions, or abscesses noted. Uvula midline. Airway patent. Heart: RR w/o murmur, rubs, or gallops. Lungs: Adventitious sounds heard in upper left lobe. No wheezing or stridor. Symmetric rise and fall. Equal breath sounds. Abdomen: Soft, nontender, with no rigidity or guarding noted. No masses, lesions, or ecchymoses. Normoactive bowel sounds. No McBurney's point tenderness. Patient ambulatory. No tenderness to palpation in splenic area or splenomegaly. No CVA tenderness. Psych: Normal mood and affect. Procedures/MDM DIAGNOSTIC IMAGING REPORT Patient: XUAN BRAVO : 1955 Age: 63 Sex: F MR #: [id number] DOS: 05/01/18 1739 Ordering MD: TREVOR ORLANDO Location: [facility] Room/Bed: PROCEDURE: XR Chest. CLINICAL INDICATION: Chest pain, cough TECHNIQUE: Single frontal view of the chest was obtained COMPARISON: 08/05/2017 FINDINGS: Atherosclerotic changes are seen in the aortic arch. The heart is mildly enlarged. The lungs are clear. There is no pleural effusion or pneumothorax. The bones and soft tissue show no acute change. IMPRESSION: Mild cardiomegaly. Otherwise, no definite abnormalities are identified. RPTAT:AAJJ Brian Metz Physician Date Time Electronically viewed and signed by Brian Metz Physician on 05/01/2018 18:25 MC/ CC: TREVOR ORLANDO [id number] ER Course: CXR - WNL MDM: 63-year-old female presents with congestion, cough, achiness, chills, for the past 3 days. Patient states she has been having a fever as well for which she has been taking Tylenol. States that other people in her household are sick with flu. Denies night sweats, weight loss, hemoptysis, SOB, chest pain, wheezing. Past medical history of diabetes, hypertension. Due to physical exam findings and history chest x-ray was ordered. Results within normal limits. Given patient's age and history of diabetes, as well as history of illness, decision was made to prescribe Tamiflu. Patient also given Rx for benzonatate and acetaminophen. I have low suspicion for tuberculosis, pneumonia, PE, malignancy, acute heart failure, or any other emergent etiology. Patient discharged with strict ER precautions. Patient advised to follow up with PMD. All questions answered at discharge. Departure Diagnosis: Primary Impression: Influenza Condition: Stable TREVOR ORLANDO May 01, 2018 17:44
[2018-05-01] MEDS ORDERED: BENZ-5 PO (18:38)
[2018-05-01] MEDS ORDERED: ACET500C5 PO (18:38)
[2018-05-01] MEDS ORDERED: OSEL75CA23 PO (18:39)
[2018-05-01 19:06] VITALS: BP 187/86; PULSE 80; RESP 18
== END 2018-05-01 19:08 | disposition home or self-care (01) ==
LOC: FTE 14:37
DX: J11.1 Influenza due to unidentified influenza virus with other respiratory manifestations (principal); I10 Essential (primary) hypertension; E11.9 Type 2 diabetes mellitus without complications; Z79.4 Long term (current) use of insulin
CPT/HCPCS: 71045

== ENCOUNTER 2019-02-23 09:52 | Day surgery (SDC) | payer MEDICARE, OTHER ==
[~2019-02-23] VITALS: Ht 160 cm; Wt 70.0 kg
[2019-02-23] VITALS (14 sets, daily range): BP systolic 126–163; BP diastolic 45–74; PULSE 54–66; RESP 10–16; Ht 160 cm; Wt 70.0 kg
[~2019-02-23 09:52] MED LIST changes: +ACET-141 PO; +ACET-2343 PO; +ACET500C5 PO; +AMLO-218 PO; +ASPI81TA52 PO; +BENZ-5 PO; +BISA10SU55 RC; -BUME2TAB2 PO; +BUME2TAB4 PO; +CALC600T24 PO; +CALC667T2 PO; +CAPT25TA3 PO; +CLON-379 PO; +DOCU-144 PO; +ERGO500013 PO; +GABA-526 PO; +GLIP5TAB13 PO; +HYDR-3671 PO; +HYDR-3672 PO; +LOPE2CAP PO; +LORA10TA3 PO; +MAGN400O19 PO; +MELA3TAB17 PO; +NA P133E10 RC; +NITR0.4T39 SL; +NOVO3I SC; +OSEL75CA23 PO; +PANT40TA3 PO; +POLY17PO6 PO; +SENN-120 PO; +UDMYL PO
[2019-02-23] MEDS ORDERED: SOD CHLORIDE 0.9% 500 ML IV ONE (12:00)
[2019-02-23] MEDS ORDERED: GELATIN SIZE 100 SPONGE ONE (14:14)
[2019-02-23] MEDS ORDERED: THROMBIN 5000 UNIT (RECOTHROM) VIAL ONE (14:14)
[2019-02-23] MEDS ORDERED: BUPIVACAINE 0.5% (SDV) 30 ML INJ ONE (14:14)
[2019-02-23] MEDS ORDERED: LIDOCAINE 1% (MPF) 30 ML INJ ONE (14:14)
[2019-02-23] MEDS ORDERED: HEPARIN 1000 UNITS/ML 10 ML INJ ONE ×2 (14:14→15:06)
[2019-02-23] MEDS ORDERED: CEFAZOLIN 1 GM INJ ONE (14:34)
[2019-02-23] MEDS ORDERED: FENTAnyl 50 MCG/ML VIAL ONE (14:34)
[2019-02-23] MEDS ORDERED: PHENYLephrine (100 MCG/ML) 10ML SYG ONE (14:34)
[2019-02-23] MEDS ORDERED: PROPOFOL 20 ML ONE ×2 (14:34→14:42)
[2019-02-23] MEDS ORDERED: MIDAZOLAM 1 MG/ML 2 ML INJ ONE (14:34)
[2019-02-23] MEDS ORDERED: ROPIVACAINE 0.5 % 30 ML VIAL ONE (14:35)
[2019-02-23] MEDS ORDERED: HYDROmorphONE 1 MG/5 ML IV SYRINGE IV PRN ×3 (15:00)
[2019-02-23] MEDS ORDERED: ONDANSETRON 4 MG INJ IV PRN ×2 (15:00→16:00)
[2019-02-23] MEDS ORDERED: FENTAnyl 50 MCG/ML VIAL IV PRN ×3 (15:00)
[2019-02-23] MEDS ORDERED: MEPERIDINE 25 MG INJ IV PRN (15:00)
[2019-02-23] MEDS ORDERED: DIPHENHYDRAMINE 50 MG INJ IV PRN (15:00)
[2019-02-23] MEDS ORDERED: EPHEDrine 25 MG/5 ML SYG IV PRN (15:00)
[2019-02-23] MEDS ORDERED: OXYCODONE/ACETAMINOPHEN (5/325) TAB PO PRN (15:00)
[2019-02-23] MEDS ORDERED: METOCLOPRAMIDE 10 MG INJ IV PRN (15:00)
[2019-02-23] MEDS ORDERED: hydrALAzine 20 MG INJ IV PRN (15:00)
[2019-02-23] MEDS ORDERED: LABETALOL HCL 20MG INJ IV PRN (15:00)
[2019-02-23] MEDS ORDERED: METOCLOPRAMIDE 10 MG INJ ONE (15:04)
[2019-02-23] MEDS ORDERED: ONDANSETRON 4 MG INJ ONE (15:04)
[2019-02-23] MEDS ORDERED: DEXTROSE 50% 50 ML SYRINGE ONE (15:52)
[2019-02-23] MEDS ORDERED: ACETAMINOPHEN 325 MG TAB PO PRN (16:00)
== END 2019-02-23 17:35 | disposition home or self-care (01) ==
LOC: SDS 09:52
PROVIDERS: ATTEND Surgery
DX: I12.0 Hypertensive chronic kidney disease with stage 5 chronic kidney disease or end stage renal disease (principal); N18.6 End stage renal disease; E11.9 Type 2 diabetes mellitus without complications; E03.9 Hypothyroidism, unspecified; E78.5 Hyperlipidemia, unspecified; Z79.82 Long term (current) use of aspirin; Z79.4 Long term (current) use of insulin
CPT/HCPCS: 36821; 71045; 80053; 82962; 85025; 85610; 85730; 93005; C1725; J0690; J1644; J2250; J2370; J2405; J2765; J2795; J3010